=== PATIENT | male | born 1965 | race American Indian/Alaskan Native ===

== ENCOUNTER 2022-11-26 14:49 | Emergency (ER) | payer MEDICAID, SELFPAY ==
[2022-11-26 14:55] VITALS: PULSE 79; PULSE 83; RESP 18; TEMP 37.1; O2SAT 100; O2SAT 99; BMI 28.4
[2022-11-26 14:59] VITALS: BP 135/93; PULSE 86; O2SAT 99
[2022-11-26 15:00] VITALS: PULSE 87; O2SAT 99
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
[2022-11-26 15:23] LABS: Add Manual Diff / Slide Review NO; Basophils Absolute Auto 0 /uL (0-100); Basophils Percent Auto 0.3 % (0-2); Eosinophils Absolute Auto 200 /uL (0-450); Eosinophils Percent Auto 2.3 % (2-4); Hematocrit 42.9 % (41-53); Hemoglobin 13.9 g/dL (13.5-17.5); Lymphocytes Absolute Auto 1600 /uL (1100-4500); Lymphocytes Percent Auto 18.1 % (25-40); Mean Corpuscular HGB Conc 32.4 % (30-36); Mean Corpuscular Hemoglobin 26.2 PG (26-34); Mean Corpuscular Volume 80.9 fL (80-100); Monocytes Absolute Auto 400 /uL (0-900); Monocytes Percent Auto 4.9 % (3-14); Neutrophils Absolute Auto 6400 /uL (1500-7000); Neutrophils Percent Auto 74.4 % (50-75); Platelet Count 454 X10^3/uL (150-400); Red Cell Distribution Width 14.9 % (11.6-14.8); White Blood Cell Count 8.7 X10^3/uL (4.5-11.0)
[2022-11-26 15:30] VITALS: PULSE 86; O2SAT 99
[2022-11-26 15:32] LABS: Creatine Kinase 373 U/L (55-170)
[2022-11-26 15:34] LABS: BUN Creatinine Ratio 14.8 (6-22); Blood Urea Nitrogen 12 mg/dL (9-20); Calcium 8.1 mg/dL (8.4-10.2); Carbon Dioxide 26 mmol/L (22-32); Chloride 105 mmol/L (98-107); Estimated Glomerular Filt Rate > 60 mL/min (>60); Glucose 118 mg/dL (70-100); Sodium 140 mmol/L (137-145)
[2022-11-26 15:36] LABS: HEMOLYSIS 78 (0-50)
[2022-11-26 15:44] LABS: Troponin I < 0.012 ng/mL (0.01-0.034)
[2022-11-26 15:48] LABS: CKMB % Relative Index 0.7 % (1.5-5.0); Creatine Kinase MB 2.69 ng/mL (<2.37)
[2022-11-26 15:59] VITALS: BP 141/88; PULSE 83; RESP 28; O2SAT 100
[2022-11-26 16:00] VITALS: BP 151/90; PULSE 83; RESP 24; O2SAT 100
--- NOTE | 2022-11-26 16:43 | PC.NURSE ---
Organ Donation: Called rehabilitation program coordinator @0081. Ruled out for donation. [facility] with Lakshmi, [id number] @ 1330. Reported case, spoke with Janes, Case accepted # [id number]. He will call back with [facility] for shirrer to pickle sorter. , Cheri, aware that pt's body will go to shirrer prior to home.
[2022-11-26] MEDS: ACETAMINOPHEN 325 MG TABLET 650 MG PO (16:48)
[2022-11-26 17:00] LABS: Bacteria Urine None Seen; Culture Indicated Urine Specimen Cultured; Mucus Urine 1+ (Negative); RBC Urine None Seen (0-5/HPF); WBC Urine 5-10/HPF (0-5/HPF)
[2022-11-26 17:01] LABS: Ictotest Urine Negative (Negative)
== END 2022-11-26 17:00 | disposition home or self-care (01) ==
PROVIDERS: Emergency Provider Emergency Medicine
DX: R07.89 Other chest pain (principal); M25.561 Pain in right knee; V89.2XXA Person injured in unspecified motor-vehicle accident, traffic, initial encounter
CPT/HCPCS: 71045; 73562; 80048; 81003; 81015; 82550; 82553; 84484; 85025; 87086; 93005; 99284